=== PATIENT | female | born 1980 | race Caucasian/White ===

== ENCOUNTER 2021-01-31 16:36 | Emergency (ER) | payer SELFPAY | END 2021-01-31 23:40 | disposition home or self-care (01) | LOC: SED 16:36 | DX: F15.959 Other stimulant use, unspecified with stimulant-induced psychotic disorder, unspecified (principal); F19.10 Other psychoactive substance abuse, uncomplicated; I49.9 Cardiac arrhythmia, unspecified | CPT/HCPCS: 93005; 96372; 99283; J2060 ==

== ENCOUNTER 2022-08-05 22:39 | Emergency (ER) | payer MEDICAID ==
[~2022-08-05] VITALS: Ht 162.6 cm; Wt 47.2 kg
[2022-08-05 23:56] LABS: BASOPHILS # (AUTO) 0.1 K/uL (0.0-0.2); BASOPHILS % (AUTO) 1.1 % (0.0-2.0); EOSINOPHILS # (AUTO) 0.1 K/uL (0.0-0.4); EOSINOPHILS % (AUTO) 1.6 % (0.0-4.0); HEMATOCRIT 35.3 % (36-48); HEMOGLOBIN 11.2 g/dL (12.0-16.0); LYMPHOCYTES # (AUTO) 1.7 K/uL (1.0-5.5); LYMPHOCYTES % (AUTO) 26.8 % (20.5-51.5); MEAN CORPUSCULAR HEMOGLOBIN 25 pg (27-31); MEAN CORPUSCULAR HGB CONC 32 % (32-36); MEAN CORPUSCULAR VOLUME 79 fL (79.0-98.0); MONOCYTES # (AUTO) 0.7 K/uL (0.0-1.0); MONOCYTES % (AUTO) 11.4 % (1.7-9.3); NEUTROPHILS # (AUTO) 3.7 K/uL (1.8-7.7); NEUTROPHILS % (AUTO) 59.1 % (40.0-70.0); PLATELET COUNT (AUTO) 363 K/uL (130-430); RED BLOOD CELL COUNT(AUTO) 4.46 MIL/uL (4.2-6.2); RED CELL DISTRIBUTION WIDTH 16.7 % (9.0-15.0); WHITE BLOOD COUNT (AUTO) 6.3 K/uL (4.8-10.8)
[2022-08-05 23:57] LABS: ANION GAP 7 (5-15); CALCIUM 8.4 mg/dL (8.4-11.0); CHLORIDE 101 mmol/L (98-107); CREATININE 0.65 mg/dL (0.55-1.30); GFR AFRICAN AMERICAN 129 mL/min (>90); UREA NITROGEN, BLOOD 11 mg/dL (8-21)
[2022-08-06 00:01] LABS: ALANINE AMINOTRANSFERASE 15 U/L (12-78); ALBUMIN 3.3 g/dL (3.4-4.8); ASPARTATE AMINOTRANSFERASE 23 U/L (10-37); GLUCOSE 102 mg/dL (70-99); TOTAL BILIRUBIN 0.5 mg/dL (0.0-1.0)
[2022-08-06 00:04] LABS: ALCOHOL, BLOOD < 3 mg/dL (<10)
[2022-08-06 01:23] LABS: CANNABINOID, URINE POSITIVE (NEG <=50); METHAMPHETAMINES SCREEN,URINE POSITIVE (NEG <=500); URINE AMPHETAMINE POSITIVE (NEG <=500)
[2022-08-06 01:24] LABS: BARBITURATE, URINE NEGATIVE (NEG <=200); BENZODIAZEPINE, URINE NEGATIVE (NEG <=150); COCAINE, URINE NEGATIVE (NEG <=150); OPIATE, URINE NEGATIVE (NEG <=100); PHENCYCLIDINE SCREEN,URINE NEGATIVE (NEG <=25); URINE METHADONE NEGATIVE (NEG <=200); URINE OXYCODONE SCREEN NEGATIVE (NEG <=100); URINE PROPOXYPHENE SCREEN NEGATIVE (NEG <=300)
[2022-08-06 01:25] LABS: UR TRICYCLIC ANTIDEPRESSANTS NEGATIVE (NEG <=300)
== END 2022-08-06 02:07 | disposition home or self-care (01) ==
LOC: SED 22:39
DX: F15.10 Other stimulant abuse, uncomplicated (principal); R41.82 Altered mental status, unspecified; Z79.899 Other long term (current) drug therapy
CPT/HCPCS: 99283; 80307; 80053; 85025; 36415; G0482

== ENCOUNTER 2022-09-10 08:16 | Emergency (ER) | payer MEDICAID ==
[~2022-09-10] VITALS: Ht 160 cm; Wt 65.8 kg
[2022-09-10 08:22] VITALS: BP_SYST 175
[2022-09-10] MEDS ORDERED: IBUPROFEN 600 MG TABLET PO ONE (08:30)
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
--- NOTE | 2022-09-10 08:55 | NUR ---
PT STATES SHE IS CURRENTLY HOMESS, SOCKS GIVEN TO PT AND BREAKFAST TRAY GIVEN.
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
--- NOTE | 2022-09-10 09:11 | NUR ---
HADOOP ANALYST AT BEDSIDE FOR EVALUATION
--- NOTE | 2022-09-10 09:22 | NUR ---
TAKEN TO RADIOLOGY VIA JULIANNE
--- NOTE | 2022-09-10 09:43 | NUR ---
RETURNED FROM RADIOLOGY AND PLACED BACK TO BED #2. PT FINISHING UP HER BREAKFAST TRAY
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
[2022-09-10 10:10] VITALS: BP_SYST 124
--- NOTE | 2022-09-10 10:21 | NUR ---
PT SLEEPING QUIETLY
[2022-09-10] MEDS ORDERED: NAPR-1172 PO (10:46)
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
--- NOTE | 2022-09-10 11:50 | NUR ---
REFUGIO TOLBERT HERE TO SPEAK WITH PT
--- NOTE | 2022-09-10 12:06 | NUR ---
Patient given written and verbal discharge instructions and verbalizes understanding. ER MD discussed with patient the results and treatment provided. Patient in stable condition. ID arm band removed. Rx of NAPROXEN given. Patient educated on pain management and to follow up with PMD. Pain Scale 0/10. Opportunity for questions provided and answered. Medication side effect fact sheet provided.
== END 2022-09-10 12:06 | disposition home or self-care (01) ==
LOC: SED 08:16
DX: S00.83XA Contusion of other part of head, initial encounter (principal); I10 Essential (primary) hypertension; F15.10 Other stimulant abuse, uncomplicated; Z79.899 Other long term (current) drug therapy; Y04.0XXA Assault by unarmed brawl or fight, initial encounter; Y93.89 Activity, other specified; Y92.89 Other specified places as the place of occurrence of the external cause; Y99.8 Other external cause status
CPT/HCPCS: 70450-TC; 70486-TC; 76376; 81025; 99284

== ENCOUNTER 2023-07-09 10:32 | Emergency (ER) | payer MEDICAID ==
[~2023-07-09] VITALS: Ht 160 cm; Wt 61.2 kg
[2023-07-09 10:32] VITALS: BP_SYST 180; PULSE 106; RESP 17; TEMP 98.2; O2SAT 98
[~2023-07-09 10:32] MED LIST: NAPR-1172 PO
[2023-07-09 11:00] VITALS: BP_SYST 180; PULSE 106; RESP 17; TEMP 98.2; O2SAT 98
== END 2023-07-09 11:01 | disposition home or self-care (01) ==
LOC: SED 10:32
DX: Z02.89 Encounter for other administrative examinations (principal); F15.10 Other stimulant abuse, uncomplicated; I10 Essential (primary) hypertension; Z79.899 Other long term (current) drug therapy; Y90.6 Blood alcohol level of 120-199 mg/100 ml
CPT/HCPCS: 99283